=== PATIENT | female | born 1975 | race Two or more races ===

== ENCOUNTER 2023-03-08 10:08 | Emergency (ER) | payer OTHER ==
[~2023-03-08] VITALS: Ht 170.2 cm; Wt 91.6 kg
[2023-03-08] MEDS ORDERED: GLIMEPIRIDE1 M1 PO (10:26)
[2023-03-08] MEDS ORDERED: GLIPIZIDE XL5 MG PO (10:27)
[2023-03-08] MEDS ORDERED: DUI500 PO (11:27)
== END 2023-03-08 11:30 | disposition home or self-care (01) ==
LOC: ER 10:08
DX: S80.812A Abrasion, left lower leg, initial encounter (principal); S80.811A Abrasion, right lower leg, initial encounter; W18.30XA Fall on same level, unspecified, initial encounter; Y93.89 Activity, other specified; Y92.89 Other specified places as the place of occurrence of the external cause; Y99.9 Unspecified external cause status